=== PATIENT | male | born 1995 | race Caucasian/White ===

== ENCOUNTER 2019-04-01 22:02 | Emergency (ER) | payer SELFPAY ==
[~2019-04-01] VITALS: Ht 165.1 cm; Wt 79.0 kg
[2019-04-02] MEDS ORDERED: SODIUM CHLORIDE 0.9% 1,000 ML IV ONE (01:15)
[2019-04-02 01:46] LABS: CHLORIDE 105 mEq/L (98-107)
[2019-04-02 01:56] LABS: EOSINOPHILS % 0.3 % (0.0-5.0); HEMATOCRIT. 43.5 % (42.0-52.0); MEAN CORPUSCULAR HEMOGLOBIN 31.9 pg (28.0-32.0); MEAN CORPUSCULAR VOLUME 92.2 fL (80.0-94.0); MEAN PLATELET VOLUME 7.5 fl (7.4-10.4); MONOCYTES % 7.9 % (2.0-8.0); NEUTROPHILS % 70.3 % (40.0-76.0); PLATELET 264 x1000/uL (130-400); RED BLOOD CELL COUNT 4.72 mill/uL (4.7-6.1); RED CELL DISTRIBUTION WIDTH 12.5 % (11.6-14.6)
[2019-04-02 01:57] LABS: BASOPHILS % 0.5 % (0.0-2.0)
[2019-04-02 06:15] VITALS: BP 150/90
== END 2019-04-02 06:36 | disposition home or self-care (01) ==
LOC: ER 22:02
DX: F15.10 Other stimulant abuse, uncomplicated (principal); R07.9 Chest pain, unspecified
CPT/HCPCS: 36415; 80048; 84484; 85025; 93005; 99284; J7030